=== PATIENT | male | born 1980 | race Caucasian/White ===

== ENCOUNTER 2019-10-19 10:35 | Emergency (ER) | payer OTHER, SELFPAY ==
--- NOTE | 2019-10-19 10:48 | ED.GENADULT ---
HPI - General Adult General Chief complaint: Upper Respiratory Infection Stated complaint: headache/fever Time Seen by Provider: 10/19/19 10:50 Source: patient and RN notes reviewed Mode of arrival: ambulatory Limitations: no limitations History of Present Illness HPI narrative: 39-year-old male presents with concern for elevated temperature today. Reports he was sent home from work after a regular temperature check revealed a temperature of 101. Reports the temperature was double checked and it was 100. 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 Reports he was sent home from work due to the elevated temperature. He denies cough, shortness of breath, rhinorrhea, nasal congestion, sore throat, abdominal pain, nausea, vomiting, diarrhea. He has a cigarette smoker. He has not taken any fever reducing medicines. MD complaint: Fever Related Data Home Medications Medication Instructions Recorded Confirmed No Home Medications 10/19/19 10/19/19 Allergies Allergy/AdvReac Type Severity Reaction Status Date / Time No Known Allergies Allergy Unverified 09/27/12 15:39 Review of Systems Review of Systems: Narrative: CONSTITUTIONAL: Denies malaise, chills, sweats, or current fever. EYES: Denies visual changes, redness, or discharge. ENT: Denies rhinorrhea, congestion, sinus pain, otalgia and sore throat. CARDIOVASCULAR: Denies chest pain, palpitations, or edema. RESPIRATORY: Denies cough or dyspnea. GASTROINTESTINAL: Denies abdominal pain, nausea, vomiting, diarrhea SKIN: Denies rash or itching. MUSCULOSKELETAL: Denies current myalgia. NEUROLOGIC: Denies current headache. All systems reviewed & are unremarkable except as noted in HPI and below PMFSH Comments At time of signature, agree with nursing past medical, surgical, social and family history. There is no relevant family history pertinent to the presenting complaint Exam Narrative: Exam Narrative: GENERAL: Well-appearing, well-nourished, and in no acute distress. HEAD: Normocephalic EYES: PERRLA, conjunctivae clear ENT: Nares clear, turbinates edematous and erythematous, clear discharge. Mucous membranes moist. TM pearly colindres with dull light reflex bilaterally; no tragal tenderness. Oropharynx erythematous without lesions. Tonsils enlarged and without exudate, no drooling, no hoarseness, no trismus, uvula midline. NECK: Supple. No lymphadenopathy CHEST: Clear to auscultation, breath sounds equal. No wheezing, rhonchi, rales, or stridor. No respiratory distress, speaks in full sentences. HEART: Regular rate and rhythm. No murmur heard. SKIN: Warm, dry, no rash. NEURO: Alert and oriented x3. PSYCH: Normal mood and affect Course Course Emergency Course: Patient is aware of diagnosis, understands and agrees to treatment plan. Anticipatory guidance given. Patient agrees to follow-up as directed and is aware of reasons to seek care at the emergency department. Portions of this record may have been created with voice recognition software Vital Signs Vital signs: Vital Signs Temperature 98.0 F 10/19/19 10:50 Pulse Rate 80 10/19/19 10:50 Respiratory Rate 16 10/19/19 10:50 Blood Pressure 156/97 H 10/19/19 10:50 Pulse Oximetry 100 10/19/19 10:50 Temperature 98.0 F 10/19/19 10:50 Pulse Rate 80 10/19/19 10:50 Respiratory Rate 16 10/19/19 10:50 Blood Pressure 156/97 H 10/19/19 10:50 Pulse Oximetry 100 10/19/19 10:50 Reviewed. Pt has been instructed to follow up with his primary care provider within the next week regarding his elevated blood pressure today. Medical Decision Making MDM Narrative Medical decision making narrative: Differential diagnosis considered: Strep pharyngitis, allergic rhinitis, upper respiratory tract infection, sinusitis, rhinosinusitis, nasopharyngitis. viral pharyngitis, otitis media, otitis
[2019-10-19 10:50] VITALS: BP 156/97; PULSE 80; RESP 16; TEMP 36.7; O2SAT 100
== END 2019-10-19 11:08 | disposition home or self-care (01) ==
PROVIDERS: Emergency Provider Nurse Practitioner
DX: R50.9 Fever, unspecified (principal); Z20.828 Contact with and (suspected) exposure to other viral communicable diseases; F17.210 Nicotine dependence, cigarettes, uncomplicated
CPT/HCPCS: 99213; G0463

== ENCOUNTER 2019-10-21 09:44 | Outpatient (NON) | payer OTHER, SELFPAY ==
[2019-10-21 17:00] LABS: SARS-CoV-2 RNA PCR Negative
== END 2019-10-21 09:45 ==
PROVIDERS: Visit Provider Nurse Practitioner
DX: R50.9 Fever, unspecified (principal); Z20.828 Contact with and (suspected) exposure to other viral communicable diseases
CPT/HCPCS: 87635; C9803; U0003